=== PATIENT | male | born 1950 | race Caucasian/White ===

== ENCOUNTER → 2025-06-16 13:22 | Outpatient (CLI) | payer MEDICARE, OTHER, SELFPAY ==
[2025-06-16 13:49] LABS: Appearance Urine UA CLEAR; Bilirubin Urine UA NEGATIVE (NEGATIVE); Color Urine UA YELLOW; Glucose Urine UA NEGATIVE (Negative); Ketones Urine UA NEGATIVE (NEGATIVE); Leukocyte Esterase Urine UA NEGATIVE (NEGATIVE); Nitrite Urine UA NEGATIVE (Negative); Occult Blood Urine UA NEGATIVE (Negative); Protein Urine UA NEGATIVE (Negative); Specific Gravity Urine UA 1.020 (1.000-1.035); Urobilinogen Urine UA 0.2 E.U./dL (0.2); pH Urine UA 7.0 (4.5-8.0)
[2025-06-16 13:58] LABS: Culture Indicated Urine Cult Not Indicated
[2025-06-16 14:03] LABS: Add Manual Diff / Slide Review NO; Hematocrit 48.6 % (41-53); Hemoglobin 16.4 g/dL (13.5-17.5); Lymphocytes Absolute Auto 800 /uL (1100-4500); Mean Corpuscular HGB Conc 33.8 % (30-36); Mean Corpuscular Hemoglobin 30.3 PG (26-34); Mean Corpuscular Volume 89.8 fL (80-100); Platelet Count 263 X10^3/uL (150-400)
[2025-06-16 14:19] LABS: Hemoglobin A1C% w Est Avg Glu 5.3 % (4.0-6.0)
[2025-06-16 14:24] LABS: Blood Urea Nitrogen 18 mg/dL (9-20); Calcium 9.9 mg/dL (8.4-10.2); Carbon Dioxide 28 mmol/L (22-32); Chloride 102 mmol/L (98-107); Estimated Glomerular Filt Rate > 60 mL/min (>60); Glucose 98 mg/dL (70-99); HEMOLYSIS < 15 (0-50); Potassium 4.7 mmol/L (3.4-5.1); Sodium 139 mmol/L (137-145)
== END ==
PROVIDERS: PCP Physician Assistant Medical; Referring Provider Orthopaedic Surgery; Visit Provider Orthopaedic Surgery
DX: Z01.812 Encounter for preprocedural laboratory examination (principal); Z01.818 Encounter for other preprocedural examination; N39.0 Urinary tract infection, site not specified; R73.9 Hyperglycemia, unspecified
CPT/HCPCS: 36415; 80048; 81001; 83036; 85025